=== PATIENT | male | born 1960 | race Two or more races ===

== ENCOUNTER 2017-03-03 09:50 | Emergency (ER) | payer OTHER ==
[2017-03-03] MEDS ORDERED: DEXAMETHASONE 10 MG/ML VIAL IVP STA (11:35)
[2017-03-03] MEDS ORDERED: SODIUM CHLORIDE 0.9% 1,000 ML IV ONE (11:35)
[2017-03-03] MEDS ORDERED: cefTRIAXone 1 GM in SODIUM CHLORIDE 0.9% MINIBAG 100 ML IV STA (11:35)
--- NOTE | 2017-03-03 11:38 | ED Physician Documentation ---
PD HPI URI - Stated complaint Stated Complaint: SOA/CONGESTION - Chief complaint Chief Complaint: Resp - History obtained from History obtained from: Patient - History of Present Illness Timing - onset: How many weeks ago (2) Timing duration: Weeks (2) Timing details: Gradual onset, Still present Associated symptoms: Chills, Sweats, Nasal congestion, Rhinorrhea, Dry cough, Chest pain Contributing factors: Sick contact Improves by: Rest, Medication Worsened by: Activity Similar symptoms before: Has not had sx before Recently seen: Not recently seen - Additional information Additional information: 56-year-old male with a prior history of pulmonary embolism is on anticoagulation and he has developed a cough and congestion over the past 2 weeks. He has had the cold go down into his chest he has had coughing paroxysms and over the past 2 days he has lost his energy he had to call off of work yesterday. He is feeling lightheaded and dizzy. Review of Systems Constitutional: reports: Chills, Myalgias, Fatigue, Sweats. denies: Fever Eyes: denies: Decreased vision Ears: denies: Ear pain Nose: reports: Rhinorrhea / runny nose, Congestion Throat: reports: Sore throat Cardiac: reports: Chest pain / pressure. denies: Palpitations Respiratory: reports: Dyspnea, Cough GI: reports: Nausea. 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) - Past Surgical History Past Surgical History: Yes General: Appendectomy Ortho: Other - Present Medications Home Medications: Ambulatory Orders Medication Instructions Recorded Confirmed Amox/Clav 875/125 [Augmentin] 1 each PO Q12H #20 tablet 03/03/17 Pravastatin [Pravachol] 40 mg PO DAILY 03/03/17 03/03/17 Rivaroxaban [Xarelto] 20 mg PO DAILY 03/03/17 03/03/17 - Allergies Allergies/Adverse Reactions: Allergies Allergy/AdvReac Type Severity Reaction Status Date / Time No Known Drug Allergies Allergy Verified 03/03/17 10:02 - Social History Does the pt smoke?: No Smoking Status: Former smoker Does the pt drink ETOH?: Yes ETOH Use: Beer Does the pt have substance abuse?: No PD ED PE NORMAL - Vitals Vital signs reviewed: Yes (Tachycardic and hypertensive) - General General: No acute distress, Well developed/nourished - HEENT HEENT: Atraumatic, PERRL, EOMI, Pharynx benign, Other (Right TM is mildly inflamed with rounding of the left landmarks the left is clear the pharynx is benign) - Neck Neck: Supple, no meningeal sign, No bony TTP - Cardiac Cardiac: RRR, No murmur - Respiratory Respiratory: No respiratory distress, Other (There are diminished breath sounds bilaterally and there is rhonchi heard in the right anterior chest.) - Abdomen Abdomen: Soft, Non tender - Back Back: No CVA TTP, No spinal TTP - Derm Derm: Normal color, Warm and dry, No rash - Extremities Extremities: No deformity, No edema - Neuro Neuro: Alert and oriented X 3, No motor deficit, No sensory deficit, Normal speech - Psych Psych: Normal mood, Normal affect Results - Vitals Vitals: Vital Signs - 24 hr 03/03/17 03/03/17 03/03/17 09:59 11:44 13:31 Temperature 36.9 C 36.9 C 36.8 C Heart Rate 101 H 96 79 Respiratory 22 18 18 Rate Blood Pressure 175/86 H 148/85 H 147/83 H O2 Saturation 97 96 95 Oxygen O2 Source Room air - EKG (time done) 0956 Rate: Rate (enter#) (98) Rhythm: NSR, LAE Ischemia: Normal ST segments Compare to prior EKG: Old EKG unavailable Computer interpretation: Agree with computer - Labs Labs: Laboratory Tests 03/03/17 03/03/17 03/03/17 12:16 12:16 12:16 WBC 9.5 RBC 5.42 Hgb 16.5 Hct 48.5 MCV 89.4 MCH 30.4 MCHC 34.0 RDW 13.4 Plt Count 224 MPV 9.0 Neut # 6.0 Lymph # 2.6 [place] # 0.8 Eos # 0.1 Baso # 0.1 Absolute Nucleated RBC 0.00 Nucleated RBC % 0.0 Sodium 140 Potassium 4.0 Chloride 104 Carbon Dioxide 24 Anion Gap 12.0 BUN 9 Creatinine 0.7 Estimated GFR (MDRD) 117 Glucose 88 Calcium 9.6 Total Bilirubin 0.7 AST 23 ALT 43 Alkaline Phosphatase 96 Troponin I < 0.04 Total Protein 7.5 Albumin 4.6 Globulin 2.9 Albumin/Globulin Ratio 1.6 Lipase 22 - Rads (name of study) 2 view chest Radiology: Prelim report reviewed (Impression: Increased density overlying the heart on the lateral projection may represent prominent fat pad although possibility of the right middle lobe airspace process is not excluded. Otherwise negative two-view chest.), EMP read indepedently (Right middle lobe airspace process corresponds to findings on physical examination.), See rad report Procedures - IVC sono (time) 1135 Bedside IVC sono: IVC measures (cm) (0.69), IVC collapsed c insp (cm) (complete) , Significant dehydration PD MEDICAL DECISION MAKING - ED course Complexity details: reviewed old records, reviewed results, re-evaluated patient , considered differential, d/w patient ED course: 56-year-old male with a history of pulmonary embolism appears to have upper respiratory tract infection with pneumonia in the right lower lobe. He does have pain anteriorly and on chest x-ray it appears he has an infiltrate there as well. He appears significantly dehydrated on interrogation of the inferior vena cava and here in the emergency department an IV is begun he is given IV saline dexamethasone and Rocephin. Departure - Departure Disposition: 01 Home, Self Care Clinical Impression: Pneumonia Qualifiers: Pneumonia type: due to unspecified organism Laterality: right Lung location: lower lobe of lung Qualified Code(s): J18.1 - Lobar pneumonia, unspecified organism Condition: Stable Instructions: ED Pneumonia Adult Follow-Up: Harley Lord MD [Primary Care Provider] - Prescriptions: Amox/Clav 875/125 [Augmentin] 1 each PO Q12H #20 tablet Forms: Activity restrictions
--- NOTE | 2017-03-03 11:40 | XRAY Preliminary Report ---
Exam: XR CHEST 2 VIEW PA/LAT IMPRESSION: Increased density overlying the heart on the lateral projection may represent a prominent fat pad although the possibility of the right middle lobe airspace process is not excluded. Otherwis e negative two-view chest. [facility] SITE ID: [id number]
--- NOTE | 2017-03-03 11:42 | XRAY Report ---
EXAM: CHEST RADIOGRAPHY EXAM DATE: 03/03/2017 11:34 AM. CLINICAL HISTORY: Cough. COMPARISON: None. TECHNIQUE: 2 views. FINDINGS: Lungs/Pleura: A wedge-shaped area of increased density overlying the heart on the lateral projection may represent a prominent fat pad although the possibility of a right middle lobe airspace process is not excluded. No other focal opacities evident. No pleural effusion. No pneumothorax. Normal volumes . Mediastinum: Heart and mediastinal contours are unremarkable. Other: None. Minor degenerative change in the spine. IMPRESSION: Increased density overlying the heart on the lateral projection may represent a prominent fat pad although the possibility of the right middle lobe airspace process is not excluded. Otherwis e negative two-view chest. [facility] Referring Provider Line: [phone] SITE ID: [id number]
[2017-03-03] MEDS ORDERED: cefTRIAXone 1 GM VIAL ONE (12:09)
[2017-03-03] MEDS ORDERED: DEXAMETHASONE 10 MG/ML VIAL ONE (12:09)
[2017-03-03 13:01] LABS: BASOPHILS # (AUTO) 0.1 10^3/uL (0.0-0.1); BASOPHILS % (AUTO) 0.8 %; EOSINOPHILS # (AUTO) 0.1 10^3/uL (0.0-0.7); EOSINOPHILS % (AUTO) 0.8 %; HCT - HEMATOCRIT 48.5 % (42.0-52.0); HGB - HEMOGLOBIN 16.5 g/dL (14.0-18.0); LYMPHOCYTES # (AUTO) 2.6 10^3/uL (1.5-3.5); LYMPHOCYTES % (AUTO) 27.4 %; MEAN CORPUSCULAR HEMOGLOBIN 30.4 pg (27.0-31.0); MEAN CORPUSCULAR VOLUME 89.4 fL (80.0-94.0); MONOCYTES # (AUTO) 0.8 10^3/uL (0.0-1.0); MONOCYTES % (AUTO) 8.1 %; NEUTROPHILS % (AUTO) 62.9 %; RED BLOOD COUNT 5.42 10^6/uL (4.70-6.10); RED CELL DISTRIBUTION WIDTH 13.4 % (12.0-15.0); UNCORRECTED WHITE BLOOD COUNT 9.5 x10^3/uL; WHITE BLOOD COUNT 9.5 x10^3/uL (4.8-10.8)
[2017-03-03 13:07] LABS: ALBUMIN/GLOBULIN RATIO 1.6 (1.0-2.2); BILIRUBIN,TOTAL 0.7 mg/dL (0.2-1.0); CALCIUM 9.6 mg/dL (8.5-10.3); CREATININE 0.7 mg/dL (0.6-1.2); TOTAL PROTEIN 7.5 g/dL (6.7-8.2)
[2017-03-03 13:31] VITALS: BP 147/83
== END 2017-03-03 13:49 | disposition home or self-care (01) ==
LOC: ED 09:50
DX: J18.9 Pneumonia, unspecified organism (principal); E86.0 Dehydration; Z86.711 Personal history of pulmonary embolism; Z79.01 Long term (current) use of anticoagulants; Z87.891 Personal history of nicotine dependence
CPT/HCPCS: 36415; 71020; 80053; 83690; 84484; 85025; 87040; 93005; 96361; 96365; 96375; 99283; 99284

== ENCOUNTER 2017-09-02 11:12 | Outpatient (CLI) | payer OTHER ==
[2017-09-02 17:58] LABS: ALBUMIN 4.7 g/dL (3.2-5.5); ALBUMIN/GLOBULIN RATIO 1.6 (1.0-2.2); ALKALINE PHOSPHATASE 103 IU/L (42-121); ALT ALANINE AMINOTRANSFERASE 38 IU/L (10-60); AST ASPARTATE AMINOTRANSFERASE 22 IU/L (10-42); BILIRUBIN,TOTAL 0.4 mg/dL (0.2-1.0); BUN - BLOOD UREA NITROGEN 11 mg/dL (6-20); CALCIUM 9.6 mg/dL (8.5-10.3); CARBON DIOXIDE - CO2 29 mmol/L (21-32); CHLORIDE 106 mmol/L (101-111); CHOL/HDL RATIO 5.6 (<5.0); CHOLESTEROL 282 mg/dL; CREATININE 0.7 mg/dL (0.6-1.2); GFR - MDRD 117 (>89); GLUCOSE 81 mg/dL (70-100); HDL CHOLESTEROL 50 mg/dL; LDL CHOLESTEROL,CALCULATED 166 mg/dL; LDL/HDL RATIO 3.3 (<3.6); SODIUM 141 mmol/L (135-145); TOTAL PROTEIN 7.7 g/dL (6.7-8.2); URIC ACID 5.2 mg/dL (2.6-7.2); VLDL CHOLESTEROL 66 mg/dL
[2017-09-02 18:01] LABS: CRP - C-REACTIVE PROTEIN < 1.0 mg/dL (0-1.0)
[2017-09-02 18:05] LABS: PSA SCREEN (Z12.5) 0.354 ng/mL (0.000-2.000)
[2017-09-02 18:09] LABS: FREE T3 3.36 pg/mL (2.5-3.9)
[2017-09-02 18:11] LABS: FREE T4 (FREE THYROXINE) 0.69 ng/dL (0.58-1.64)
[2017-09-02 18:58] LABS: BASOPHILS # (AUTO) 0.1 10^3/uL (0.0-0.1); BASOPHILS % (AUTO) 0.7 %; EOSINOPHILS # (AUTO) 0.1 10^3/uL (0.0-0.7); EOSINOPHILS % (AUTO) 1.5 %; HGB - HEMOGLOBIN 16.3 g/dL (14.0-18.0); LYMPHOCYTES # (AUTO) 2.1 10^3/uL (1.5-3.5); MEAN CORPUSCULAR HEMOGLOBIN 30.3 pg (27.0-31.0); MEAN CORPUSCULAR HGB CONC 32.8 g/dL (32.0-36.0); MEAN CORPUSCULAR VOLUME 92.4 fL (80.0-94.0); MEAN PLATELET VOLUME 9.2 fL (7.4-11.4); MONOCYTES # (AUTO) 0.8 10^3/uL (0.0-1.0); MONOCYTES % (AUTO) 10.3 %; NEUTROPHILS # (AUTO) 4.8 10^3/uL (1.5-6.6); NEUTROPHILS % (AUTO) 60.5 %; PLT - PLATELET COUNT 215 10^3/uL (130-450); RED BLOOD COUNT 5.37 10^6/uL (4.70-6.10); RED CELL DISTRIBUTION WIDTH 13.8 % (12.0-15.0); WHITE BLOOD COUNT 7.9 x10^3/uL (4.8-10.8)
[2017-09-02 20:02] LABS: RHEUMATOID FACTOR NEGATIVE (Negative)
[2017-09-04 14:06] LABS: ANA SCREEN NEGATIVE (NEGATIVE)
[2017-09-04 18:47] LABS: CYCLIC CITRULL PEPTIDE CCP IGG <16 UNITS
== END 2017-09-02 11:13 | disposition home or self-care (01) ==
LOC: LAB.F 11:12
PROVIDERS: ATTEND Family Medicine
DX: E78.5 Hyperlipidemia, unspecified (principal); M25.50 Pain in unspecified joint; Z12.5 Encounter for screening for malignant neoplasm of prostate; R53.83 Other fatigue
CPT/HCPCS: 36415; 80053; 80061; 83721; 84153; 84439; 84443; 84481; 84550; 85025; 85651; 86038; 86140; 86200; 86430; 86800

== ENCOUNTER 2018-05-18 11:01 | Outpatient (CLI) | payer OTHER ==
[2018-05-18 17:42] LABS: MEAN CORPUSCULAR HEMOGLOBIN 30.4 pg (27.0-31.0); MEAN CORPUSCULAR HGB CONC 32.7 g/dL (32.0-36.0); MEAN CORPUSCULAR VOLUME 92.9 fL (80.0-94.0); MEAN PLATELET VOLUME 9.3 fL (7.4-11.4); RED BLOOD COUNT 5.25 10^6/uL (4.70-6.10); RED CELL DISTRIBUTION WIDTH 14.1 % (12.0-15.0); WHITE BLOOD COUNT 7.3 x10^3/uL (4.8-10.8)
[2018-05-18 18:11] LABS: ALBUMIN 4.4 g/dL (3.2-5.5); ALBUMIN/GLOBULIN RATIO 1.9 (1.0-2.2); ALKALINE PHOSPHATASE 106 IU/L (42-121); ALT ALANINE AMINOTRANSFERASE 34 IU/L (10-60); AST ASPARTATE AMINOTRANSFERASE 19 IU/L (10-42); BILIRUBIN,TOTAL 0.6 mg/dL (0.2-1.0); BUN - BLOOD UREA NITROGEN 9 mg/dL (6-20); CARBON DIOXIDE - CO2 21 mmol/L (21-32); CHLORIDE 109 mmol/L (101-111); CHOL/HDL RATIO 4.2 (<5.0); CHOLESTEROL 237 mg/dL; CREATININE 0.5 mg/dL (0.6-1.2); GFR - MDRD 171 (>89); GLUCOSE 93 mg/dL (70-100); HDL CHOLESTEROL 56 mg/dL; LDL CHOLESTEROL,CALCULATED 160 mg/dL; LDL/HDL RATIO 2.9 (<3.6); SODIUM 136 mmol/L (135-145); TOTAL PROTEIN 6.7 g/dL (6.7-8.2); VLDL CHOLESTEROL 21 mg/dL
== END 2018-05-18 23:59 | disposition home or self-care (01) ==
LOC: LAB.F 11:01
PROVIDERS: ATTEND Internal Medicine
DX: E78.5 Hyperlipidemia, unspecified (principal); Z12.5 Encounter for screening for malignant neoplasm of prostate; Z79.01 Long term (current) use of anticoagulants
CPT/HCPCS: 36415; 80053; 80061; 83721; 84153; 85027

== ENCOUNTER 2018-05-20 11:49 | Outpatient (CLI) | payer OTHER ==
[2018-05-23 17:52] LABS: ANA SCREEN POSITIVE (NEGATIVE)
== END 2018-05-20 11:50 | disposition home or self-care (01) ==
LOC: LAB.F 11:49
PROVIDERS: ATTEND Internal Medicine
DX: R53.83 Other fatigue (principal)
CPT/HCPCS: 36415; 85651; 86038; 86140

== ENCOUNTER 2018-05-20 13:10 | Outpatient (CLI) | payer OTHER ==
--- NOTE | 2018-05-20 15:49 | XRAY Report ---
Reason: CHEST WALL PAIN Procedure Date: 05/20/2018 Accession Number: [id number] / [id number] Procedure: XR - Chest 2 View X-Ray CPT Code: 04877 FULL RESULT: EXAM: CHEST RADIOGRAPHY EXAM DATE: 05/20/2018 01:16 PM. CLINICAL HISTORY: Pain in lower lateral and posterior chest wall for several weeks. COMPARISON: Chest 2 views 03/03/2017. TECHNIQUE: 2 views. FINDINGS: Lungs/Pleura: No focal opacities evident. No pleural effusion. No pneumothorax. Normal volumes. Mediastinum: Heart and mediastinal contours are unremarkable. Other: None. IMPRESSION: No acute cardiopulmonary abnormality. [facility]
== END 2018-05-20 13:11 | disposition home or self-care (01) ==
LOC: DI 13:10
PROVIDERS: ATTEND Internal Medicine
DX: R07.89 Other chest pain (principal); R53.83 Other fatigue
CPT/HCPCS: 36415; 71046; 85651; 86038; 86140

== ENCOUNTER 2019-05-10 08:51 | Outpatient (CLI) | payer OTHER ==
[2019-05-10 17:35] LABS: ALBUMIN 4.8 g/dL (3.2-5.5); ALBUMIN/GLOBULIN RATIO 1.7 (1.0-2.2); ALKALINE PHOSPHATASE 79 IU/L (42-121); ALT ALANINE AMINOTRANSFERASE 38 IU/L (10-60); AST ASPARTATE AMINOTRANSFERASE 23 IU/L (10-42); BILIRUBIN,TOTAL 0.5 mg/dL (0.2-1.0); BUN - BLOOD UREA NITROGEN 10 mg/dL (6-20); CALCIUM 9.4 mg/dL (8.5-10.3); CARBON DIOXIDE - CO2 28 mmol/L (21-32); CHLORIDE 104 mmol/L (101-111); CHOLESTEROL 263 mg/dL; CREATININE 0.6 mg/dL (0.6-1.2); GFR - MDRD 138 (>89); GLUCOSE 102 mg/dL (70-100); HDL CHOLESTEROL 66 mg/dL; LDL CHOLESTEROL,CALCULATED 162 mg/dL; LDL/HDL RATIO 2.5 (<3.6); SODIUM 140 mmol/L (135-145); TOTAL PROTEIN 7.7 g/dL (6.7-8.2); VLDL CHOLESTEROL 35 mg/dL
== END 2019-05-10 08:52 | disposition home or self-care (01) ==
LOC: LAB.S 08:51
PROVIDERS: ATTEND Internal Medicine
DX: E78.5 Hyperlipidemia, unspecified (principal); Z12.5 Encounter for screening for malignant neoplasm of prostate
CPT/HCPCS: 36415; 80053; 80061; 83721; 84153

== ENCOUNTER 2020-04-10 07:07 | Outpatient (CLI) | payer OTHER ==
--- NOTE | 2020-04-10 14:03 | Ultrasound Report ---
PROCEDURE: Abdomen Complete INDICATIONS: FATIGUE, LOSS OD APPETITE, DIARRHEA, RUG ABD PAIN TECHNIQUE: Real-time scanning was performed of the abdominal and retroperitoneal organs, with image documentatio n. COMPARISON: None. FINDINGS: Liver: Liver is normal in size and homogeneous in echotexture, diffusely hyperechoic consistent with prominent fatty infiltration. Gallbladder: Appears normal. Biliary ducts: Intrahepatic bile ducts are non-dilated. Extrahepatic bile duct caliber measures 5.3 mm. Normal is 6-7 mm or less in diameter, or 10 mm or less post-cholecystectomy. Pancreas: Visualized portions of the pancreas are sonographically normal. Spleen: Spleen is normal in size and homogeneous in echotexture. Kidneys: Kidneys are normal in size and echotexture. Right kidney measures 10.3 cm long; left kidne y measures 10.4 cm long. No hydronephrosis or nephrolithiasis. No solid masses. Aorta: Visualized aorta is normal in caliber at less than 3 cm. Iliacs: Proximal common iliac arteries are normal in caliber at less than 2.5 cm. IVC: Intrahepatic inferior vena cava is patent. Miscellaneous: No free abdominal fluid. IMPRESSION: Prominent fatty infiltration throughout the liver, no liver mass lesion or evidence of biliary disten tion is found. No ascites throughout the peritoneal space is seen. No varices are identified. Please note that significant portions of the peritoneal space and retroperitoneum are relatively poorly visu alized by ultrasound due to bowel gas and depending on the clinical status follow-up by CT scanning t hrough the abdomen/pelvis may become necessary. A chest plain films also may be warranted at this [facility]. Reviewed by: Silvino Fink MD on 04/10/2020 2:01 PM [facility] Approved by: Silvino Fink MD on 04/10/2020 2:01 PM PST Station ID: [id number]
== END 2020-04-10 07:08 | disposition home or self-care (01) ==
LOC: DI 07:07
PROVIDERS: ATTEND Physician Assistant
DX: Z00.00 Encounter for general adult medical examination without abnormal findings (principal); K76.0 Fatty (change of) liver, not elsewhere classified; E78.5 Hyperlipidemia, unspecified; D68.51 Activated protein C resistance; R53.83 Other fatigue; R19.7 Diarrhea, unspecified; R10.11 Right upper quadrant pain; Z12.5 Encounter for screening for malignant neoplasm of prostate; R63.0 Anorexia
CPT/HCPCS: 36415; 76700; 80053; 80061; 81001; 82150; 83690; 83721; 84153; 84443; 85025; 85610; 85730; 87086

== ENCOUNTER 2020-04-10 08:09 | Outpatient (CLI) | payer OTHER ==
[2020-04-10 08:13] LABS: BASOPHILS # (AUTO) 0.1 10^3/uL (0.0-0.1); BASOPHILS % (AUTO) 0.8 %; EOSINOPHILS # (AUTO) 0.1 10^3/uL (0.0-0.7); EOSINOPHILS % (AUTO) 1.3 %; HGB - HEMOGLOBIN 17.3 g/dL (14.0-18.0); LYMPHOCYTES # (AUTO) 1.8 10^3/uL (1.5-3.5); LYMPHOCYTES % (AUTO) 23.2 %; MEAN CORPUSCULAR HGB CONC 33.7 g/dL (32.0-36.0); MEAN PLATELET VOLUME 10.2 fL (7.4-11.4); MONOCYTES # (AUTO) 0.7 10^3/uL (0.0-1.0); MONOCYTES % (AUTO) 9.2 %; NEUTROPHILS # (AUTO) 4.9 10^3/uL (1.5-6.6); NEUTROPHILS % (AUTO) 64.7 %; PLT - PLATELET COUNT 215 10^3/uL (130-450); RED BLOOD COUNT 5.41 10^6/uL (4.70-6.10); RED CELL DISTRIBUTION WIDTH 13.4 % (12.0-15.0); WHITE BLOOD COUNT 7.6 x10^3/uL (4.8-10.8)
[2020-04-10 08:17] LABS: PT - PROTHROMBIN TIME 11.4 secs (9.9-12.6)
[2020-04-10 08:25] LABS: PARTIAL THROMBOPLASTIN TIME 29.8 secs (24.9-33.3)
[2020-04-10 08:33] LABS: ALBUMIN 4.5 g/dL (3.2-5.5); ALBUMIN/GLOBULIN RATIO 1.6 (1.0-2.2); ALKALINE PHOSPHATASE 95 IU/L (42-121); ALT ALANINE AMINOTRANSFERASE 43 IU/L (10-60); AMYLASE 38 U/L (28-100); AST ASPARTATE AMINOTRANSFERASE 26 IU/L (10-42); BILIRUBIN,TOTAL 0.6 mg/dL (0.2-1.0); BUN - BLOOD UREA NITROGEN 10 mg/dL (6-20); CALCIUM 9.6 mg/dL (8.5-10.3); CARBON DIOXIDE - CO2 25 mmol/L (21-32); CHLORIDE 105 mmol/L (101-111); CHOL/HDL RATIO 4.7 (<5.0); CHOLESTEROL 276 mg/dL; CREATININE 0.6 mg/dL (0.6-1.2); GLUCOSE 114 mg/dL (70-100); HDL CHOLESTEROL 59 mg/dL; LDL CHOLESTEROL,CALCULATED 193 mg/dL; LDL/HDL RATIO 3.3 (<3.6); LIPASE 22 U/L (22-51); SODIUM 140 mmol/L (135-145); TOTAL PROTEIN 7.4 g/dL (6.7-8.2); VLDL CHOLESTEROL 24 mg/dL
[2020-04-10 09:25] LABS: BILIRUBIN,URINE NEGATIVE (NEGATIVE); GLUCOSE, URINE (UA) NEGATIVE (NEGATIVE); KETONES,URINE (UA) NEGATIVE (NEGATIVE); LEUKOCYTE ESTERASE, URINE NEGATIVE (NEGATIVE); NITRITE,URINE NEGATIVE (NEGATIVE); OCCULT BLOOD,URINE NEGATIVE (NEGATIVE); PROTEIN,URINE NEGATIVE (NEGATIVE); UROBILINOGEN,URINE 0.2 (NORMAL) E.U./dL (NORMAL)
[2020-04-10 09:28] LABS: CLARITY,URINE CLEAR (CLEAR)
[2020-04-10 10:35] LABS: BACTERIA,URINE Rare /HPF (None Seen); RBC,URINE 0-5 /HPF (0-5); SQUAMOUS EPITHELIAL CELL,UR RARE Squamous (<= Few)
== END 2020-04-10 08:10 | disposition home or self-care (01) ==
LOC: LAB 08:09
PROVIDERS: ATTEND Physician Assistant
DX: Z00.00 Encounter for general adult medical examination without abnormal findings (principal); E78.5 Hyperlipidemia, unspecified; D68.51 Activated protein C resistance; Z12.5 Encounter for screening for malignant neoplasm of prostate; R53.83 Other fatigue; R10.11 Right upper quadrant pain; R63.0 Anorexia; R19.7 Diarrhea, unspecified
CPT/HCPCS: 36415; 80053; 80061; 81001; 82150; 83690; 83721; 84153; 84443; 85025; 85610; 85730; 87086

== ENCOUNTER 2021-05-07 13:45 | Outpatient (CLI) | payer OTHER | END 2021-05-07 13:46 | disposition EMS.NT | LOC: EMS 13:45 | DX: R00.2 Palpitations (principal) ==

== ENCOUNTER 2021-08-31 09:55 | Emergency (ER) | payer OTHER ==
--- NOTE | 2021-08-31 10:15 | ED Physician Documentation ---
History of Present Illness - Stated complaint Stated Complaint: CHEST DISCOMFORT - Chief complaint Chief Complaint: Cardiac - History obtained from History obtained from: Patient - Additonal information Additional information: 60-year-old gentleman with history of coronary disease with 3 stents placed about 5 months ago, and remote history of PE still on anticoagulation because of a hypercoagulable disorder (he does not know which one, but seems to recognize activated protein C). For the last 3 days has had intermittent palpitations. It feels like a brief fluttering in his chest that triggers a cough and then it goes away. He feels mildly congested with it. There is no chest pain or pressure associated with this. He is asymptomatic on arrival here. He has been compliant with his medications. He does not drink caffeine and no other recent changes that would trigger, in his mind, anything. Review of Systems Ten Systems: 10 systems reviewed and negative Constitutional: denies: Fever, Chills, Fatigue Cardiac: reports: Palpitations. denies: Chest pain / pressure, Pedal edema, Calf pain Respiratory: reports: Cough. denies: Hemoptysis, Wheezing PD PAST MEDICAL HISTORY - Past Medical History Cardiovascular: None Respiratory: Other Endocrine/Autoimmune: None GI: None : None HEENT: Macular degeneration Psych: None Musculoskeletal: Other Derm: None - Past Surgical History Past Surgical History: Yes General: Appendectomy Ortho: Other - Present Medications Home Medications: Ambulatory Orders Medication Instructions Recorded Confirmed Pravastatin [Pravachol] 40 mg PO DAILY 03/03/17 08/31/21 Rivaroxaban [Xarelto] 20 mg PO DAILY 03/03/17 08/31/21 Clopidogrel [Plavix] 75 mg PO DAILY 08/31/21 08/31/21 Losartan [Cozaar] 50 mg PO DAILY 08/31/21 08/31/21 - Allergies Allergies/Adverse Reactions: Allergies Allergy/AdvReac Type Severity Reaction Status Date / Time No Known Drug Allergies Allergy Verified 08/31/21 09:58 - Social History Does the pt smoke?: No Smoking Status: Former smoker Does the pt drink ETOH?: Yes Does the pt have substance abuse?: No PD ED PE NORMAL - Vitals Vital signs reviewed: Yes - General General: Alert and oriented X 3, No acute distress - HEENT HEENT: PERRL, EOMI - Neck Neck: Thyroid normal - Cardiac Cardiac: RRR, No murmur - Respiratory Respiratory: No respiratory distress, Clear bilaterally - Abdomen Abdomen: Non tender - Extremities Extremities: No edema, No calf tenderness / cord - Neuro Neuro: Alert and oriented X 3, Normal speech Results - Vitals Vitals: Vital Signs - 24 hr 08/31/21 08/31/21 09:58 10:23 Temperature 36.8 C Heart Rate 89 98 Respiratory 16 24 Rate Blood Pressure 171/89 H 150/79 H O2 Saturation 100 98 Oxygen O2 Source Room air - EKG (time done) 1011 Rate: Rate (enter#) (92) Rhythm: NSR [place]: Normal Intervals: Normal GA QRS: Normal Ischemia: Normal ST segments Computer interpretation: Disagree with computer (Computer calling minimal ST elevation anteriorly, to me the ST segments look flat.) - Labs Labs: Laboratory Tests 08/31/21 08/31/21 08/31/21 10:10 10:10 10:10 WBC 8.6 RBC 5.36 Hgb 16.8 Hct 50.3 MCV 93.8 MCH 31.3 H MCHC 33.4 RDW 13.5 Plt Count 223 MPV 9.8 Neut # (Auto) 5.5 Lymph # (Auto) 2.1 [place] # (Auto) 0.8 Eos # (Auto) 0.1 Baso # (Auto) 0.1 Absolute Nucleated RBC 0.00 Nucleated RBC % 0.0 Sodium 138 Potassium 4.0 Chloride 101 Carbon Dioxide 26 Anion Gap 11.0 BUN 11 Creatinine 0.7 Estimated GFR (MDRD) 115 Glucose 97 Calcium 9.2 Total Bilirubin 0.7 AST 27 ALT 39 Alkaline Phosphatase 90 Total Protein 7.6 Albumin 4.6 Globulin 3.0 Albumin/Globulin Ratio 1.5 Lipase 25 TSH 2.10 PD MEDICAL DECISION MAKING - ED course ED course: 60-year-old gentleman with history of hypercoagulable disorder and coronary disease presents with palpitations. There is no pain associated with it. His EKG is nonischemic and his symptoms really are not consistent with PE or ACS. He was observed on the monitor and did have an episode of palpitations here but on the monitor did not corroborate with any ectopy or arrhythmia and he was relieved. Departure - Departure Disposition: 01 Home, Self Care Clinical Impression: Palpitations Condition: Good Record reviewed to determine appropriate education?: Yes Instructions: ED Palpitations Comments: As discussed, your labs, EKG, and cardiac monitoring while in the department were normal even though you had symptoms. 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
[2021-08-31 10:18] LABS: BASOPHILS # (AUTO) 0.1 10^3/uL (0.0-0.1); BASOPHILS % (AUTO) 0.7 %; EOSINOPHILS # (AUTO) 0.1 10^3/uL (0.0-0.7); EOSINOPHILS % (AUTO) 1.6 %; HCT - HEMATOCRIT 50.3 % (42.0-52.0); HGB - HEMOGLOBIN 16.8 g/dL (14.0-18.0); LYMPHOCYTES # (AUTO) 2.1 10^3/uL (1.5-3.5); LYMPHOCYTES % (AUTO) 24.4 %; MEAN CORPUSCULAR HEMOGLOBIN 31.3 pg (27.0-31.0); MEAN CORPUSCULAR HGB CONC 33.4 g/dL (32.0-36.0); MEAN CORPUSCULAR VOLUME 93.8 fL (80.0-94.0); MEAN PLATELET VOLUME 9.8 fL (7.4-11.4); MONOCYTES # (AUTO) 0.8 10^3/uL (0.0-1.0); MONOCYTES % (AUTO) 8.9 %; NEUTROPHILS # (AUTO) 5.5 10^3/uL (1.5-6.6); NEUTROPHILS % (AUTO) 64.1 %; PLT - PLATELET COUNT 223 10^3/uL (130-450); RED BLOOD COUNT 5.36 10^6/uL (4.70-6.10); RED CELL DISTRIBUTION WIDTH 13.5 % (12.0-15.0); WHITE BLOOD COUNT 8.6 x10^3/uL (4.8-10.8)
[2021-08-31 10:36] LABS: ALBUMIN 4.6 g/dL (3.2-5.5); ALBUMIN/GLOBULIN RATIO 1.5 (1.0-2.2); BILIRUBIN,TOTAL 0.7 mg/dL (0.2-1.0); CALCIUM 9.2 mg/dL (8.5-10.3); CREATININE 0.7 mg/dL (0.6-1.2); TOTAL PROTEIN 7.6 g/dL (6.7-8.2)
[2021-08-31 11:15] VITALS: BP 151/86
== END 2021-08-31 11:22 | disposition home or self-care (01) ==
LOC: ED 09:55
DX: R00.2 Palpitations (principal); Z87.891 Personal history of nicotine dependence
CPT/HCPCS: 36415; 80053; 83690; 84443; 85025; 93005; 99282; 99284

== ENCOUNTER 2022-09-04 12:30 | Outpatient (CLI) | payer OTHER ==
[2022-09-04 13:05] LABS: ALBUMIN 4.5 g/dL (3.2-5.5); ALBUMIN/GLOBULIN RATIO 1.6 (1.0-2.2); BILIRUBIN,TOTAL 0.7 mg/dL (0.2-1.0); CALCIUM 9.2 mg/dL (8.5-10.3); CREATININE 0.5 mg/dL (0.6-1.2); POTASSIUM 3.7 mmol/L (3.5-5.0); TOTAL PROTEIN 7.4 g/dL (6.7-8.2)
== END 2022-09-04 12:31 | disposition home or self-care (01) ==
LOC: LAB 12:30
PROVIDERS: ATTEND Family Medicine
DX: Z86.711 Personal history of pulmonary embolism (principal)
CPT/HCPCS: 36415; 80053